=== PATIENT | male | born 1975 ===

== ENCOUNTER 2021-08-29 21:36 | Emergency (ER) | payer OTHER ==
[2021-08-29 21:57] LABS: ANION GAP 13.9 mEq/L (7-13); CHLORIDE,CL 106 mmol/L (98-107); SODIUM,NA 143 mmol/L (136-145)
[2021-08-29 22:34] LABS: CORONAVIRUS COVID-19 NAA NEGATIVE (NEGATIVE)
[2021-08-29] MEDS ORDERED: Oseltamivir 75 MG Cap PO ONE (22:42)
--- NOTE | 2021-08-29 22:47 | EDM.PDOC ---
ED HPI GENERAL MEDICAL PROBLEM - General Chief Complaint: Chest Pain Stated Complaint: ambulance Time Seen by Provider: 08/29/21 22:30 Source of Information: Reports: Patient History Limitations: Reports: No Limitations - History of Present Illness INITIAL COMMENTS - FREE TEXT/NARRATIVE: This 46 yo male patient reports to the ED due to chest pain over the past 3 days. The patient is currently at the treatment center and reports to their staff that he lost sense of smell and taste over the weekend also. The patient reports he has been coughing a lot over the past 3 days. Onset Date: 08/27/21 Duration: Constant, Getting Worse Location: Reports: Chest, Back Quality: Reports: Ache Severity: Moderate Improves with: Reports: None Worsens with: Reports: None Context: Reports: Other Associated Symptoms: Reports: Chest Pain, Cough Left Anterior Chest Pain Score (Numeric/FACES): 6 - Related Data Allergies Allergy/AdvReac Type Severity Reaction Status Date / Time No Known Allergies Allergy Verified 08/29/21 21:40 Home Meds: Home Meds . [No Known Home Meds] 08/29/21 [History] Aspirin 4 tbs PO DAILY PRN 08/29/21 [History] Past Medical History Musculoskeletal History: Reports: Arthritis - Infectious Disease History Infectious Disease History: Reports: Chicken Pox Social & Family History - Tobacco Use Tobacco Use Status *Q: Never Tobacco User - Caffeine Use Caffeine Use: Reports: Coffee - Recreational Drug Use Recreational Drug Use: Yes Recreational Drug Type: Reports: Marijuana/Hashish ED ROS GENERAL - Review of Systems Review Of Systems: Comprehensive ROS is negative, except as noted in HPI. ED EXAM, GENERAL - Physical Exam Exam: See Below Exam Limited By: No Limitations General Appearance: Alert, WD/WN, Moderate Distress Eye Exam: Bilateral Eye: EOMI, Normal Inspection, PERRL Ears: Normal External Exam, Normal Canal, Hearing Grossly Normal, Normal TMs Nose: Normal Inspection, Normal Mucosa, No Blood Throat/Mouth: Normal Inspection, Normal Lips, Normal Teeth, Normal Gums, Normal Oropharynx, Normal Voice, No Airway Compromise Head: Atraumatic, Normocephalic Neck: Normal Inspection, Supple, Non-Tender, Full Range of Motion Respiratory/Chest: No Respiratory Distress, Lungs Clear, Normal Breath Sounds, No Accessory Muscle Use, Other (left chest wall tenderness to palpation) Cardiovascular: Normal Peripheral Pulses, Regular Rate, Rhythm, No Edema, No Gallop, No JVD, No Murmur, No Rub GI/Abdominal: Normal Bowel Sounds, Soft, Non-Tender, No Organomegaly, No Distention, No Abnormal Bruit, No Mass (Male) Exam: Deferred Rectal (Males) Exam: Deferred Back Exam: Normal Inspection, Full Range of Motion, NT Extremities: Normal Inspection, Normal Range of Motion, Non-Tender, Normal Capillary Refill, No Pedal Edema Neurological: Alert, Oriented, CN II-XII Intact, Normal Cognition, Normal Gait, Normal Reflexes, No Motor/Sensory Deficits Psychiatric: Normal Affect, Normal Mood Skin Exam: Warm, Dry, Intact, Normal Color, No Rash Lymphatic: No Adenopathy Course - Vital Signs Last Recorded V/S: Last Vital Signs Temp 99.7 F 08/29/21 21:38 Pulse 92 08/29/21 21:38 Resp 18 08/29/21 21:38 BP 191/99 H 08/29/21 21:38 Pulse Ox 99 08/29/21 21:38 - Orders/Labs/Meds Orders: Active Orders 24 hr Category Date Time Status DRUG SCREEN URINE BIORAD [URCHEM] Stat Lab 08/29/21 21:23 Ordered UA RFX EFRAIN AND CULT IF INDIC [URIN] Urgent Lab 08/29/21 21:23 Ordered Oseltamivir [Tamiflu] Med 08/29/21 22:42 Once 75 mg PO ONETIME ONE Labs: Laboratory Tests 08/29/21 08/29/21 08/29/21 Range/Units 21:30 21:30 21:30 WBC 7.5 (5.0-10.0) 10^3/uL RBC 4.00 L (4.6-6.2) 10^6/uL Hgb 12.6 L (14.0-18.0) g/dL Hct 37.6 L (40.0-54.0) % MCV 94.0 (80-100) fL MCH 31.5 (27.0-34.0) pg MCHC 33.5 (33.0-35.0) g/dL Plt Count 291 (150-450) 10^3/uL Neut % (Auto) 68.7 (42.2-75.2) % Lymph % (Auto) 21.3 (20.5-50.1) % Hawkins % (Auto) 9.1 H (2-8) % Eos % (Auto) 0.4 L (1.0-3.0) % Baso % (Auto) 0.5 (0.0-1.0) % Sodium 143 (136-145) mmol/L Potassium 3.9 (3.5-5.1) mmol/L Chloride 106 (98-107) mmol/L Carbon Dioxide 27 (21-32) mmol/L Anion Gap 13.9 H (7-13) mEq/L BUN 17 (7-18) mg/dL Creatinine 1.19 (0.70-1.30) mg/dL Est Cr Clr Drug Dosing 85.14 mL/min Estimated GFR (MDRD) > 60 BUN/Creatinine Ratio 14.3 (No establ ref range) Glucose 127 H (70-99) mg/dL Lactic Acid 1.3 (0.4-2.0) mmol/L Calcium 8.5 (8.5-10.1) mg/dL Total Bilirubin 0.2 (0.2-1.0) mg/dL AST 20 (15-37) U/L ALT 42 (16-63) U/L Alkaline Phosphatase 108 (46-116) U/L Troponin I High Sens 28 (<=76) pg/mL Total Protein 7.8 (6.4-8.2) g/dL Albumin 3.9 (3.4-5.0) g/dL Globulin 3.9 Albumin/Globulin Ratio 1.0 Influenza Type A RNA (NEGATIVE) Influenza Type B RNA (NEGATIVE) SARS-CoV-2 RNA (TAMMIE) (NEGATIVE) 08/29/21 Range/Units 21:45 WBC (5.0-10.0) 10^3/uL RBC (4.6-6.2) 10^6/uL Hgb (14.0-18.0) g/dL Hct (40.0-54.0) % MCV (80-100) fL MCH (27.0-34.0) pg MCHC (33.0-35.0) g/dL Plt Count (150-450) 10^3/uL Neut % (Auto) (42.2-75.2) % Lymph % (Auto) (20.5-50.1) % Hawkins % (Auto) (2-8) % Eos % (Auto) (1.0-3.0) % Baso % (Auto) (0.0-1.0) % Sodium (136-145) mmol/L Potassium (3.5-5.1) mmol/L Chloride (98-107) mmol/L Carbon Dioxide (21-32) mmol/L Anion Gap (7-13) mEq/L BUN (7-18) mg/dL Creatinine (0.70-1.30) mg/dL Est Cr Clr Drug Dosing mL/min Estimated GFR (MDRD) BUN/Creatinine Ratio (No establ ref range) Glucose (70-99) mg/dL Lactic Acid (0.4-2.0) mmol/L Calcium (8.5-10.1) mg/dL Total Bilirubin (0.2-1.0) mg/dL AST (15-37) U/L ALT (16-63) U/L Alkaline Phosphatase (46-116) U/L Troponin I High Sens (<=76) pg/mL Total Protein (6.4-8.2) g/dL Albumin (3.4-5.0) g/dL Globulin Albumin/Globulin Ratio Influenza Type A RNA Positive H (NEGATIVE) Influenza Type B RNA Negative (NEGATIVE) SARS-CoV-2 RNA (TAMMIE) Negative (NEGATIVE) Departure - Departure Time of Disposition: 22:45 Disposition: Home, Self-Care 01 Condition: Fair Clinical Impression: Influenza A Instructions: Influenza, Adult, [id number] Care Plan Goals: The patient was advised of the examination and lab results during the visit. The patient was given an oral dose of Tamiflu (75 mg) while in the ED. The patient was discharged with a script for Tamiflu (75 mg) #9 to take 1 by mouth 2 times per day for 5 days. The patient was encouraged to increase their oral fluid intake. The patient may take Tylenol or ibuprofen as directed for temporary symptom relief. The patient was encouraged to stick to a BRAT diet (bananas, rice, applesauce and toast) with small frequent sips of fluid. If the patient has any additional symptoms or concerns, the patient should follow-up with his primary care facility or return to the emergency department. Sepsis Event Note (ED) - Focused Exam Vital Signs: Vital Signs Temp Pulse Resp BP Pulse Ox 08/29/21 21:38 99.7 F 92 18 191/99 H 99 - My Orders Last 24 Hours: My Active Orders 08/29/21 21:23 DRUG SCREEN URINE BIORAD [URCHEM] Stat UA RFX EFRAIN AND CULT IF INDIC [URIN] Urgent 08/29/21 22:42 Oseltamivir [Tamiflu] 75 mg PO ONETIME ONE - Assessment/Plan Last 24 Hours: My Active Orders 08/29/21 21:23 DRUG SCREEN URINE BIORAD [URCHEM] Stat UA RFX EFRAIN AND CULT IF INDIC [URIN] Urgent 08/29/21 22:42 Oseltamivir [Tamiflu] 75 mg PO ONETIME ONE
== END 2021-08-29 22:55 | disposition home or self-care (01) ==
LOC: DL.ED 21:36
DX: J10.1 Influenza due to other identified influenza virus with other respiratory manifestations (principal); M19.90 Unspecified osteoarthritis, unspecified site; Z79.82 Long term (current) use of aspirin; Z20.822 Contact with and (suspected) exposure to COVID-19
CPT/HCPCS: 0240U; 36415; 80053; 83605; 84484; 85025; 93005; 99285; A9270